=== PATIENT | female | born 1980 | race Caucasian/White ===

== ENCOUNTER 2019-06-03 10:25 | Outpatient (CLI) | payer BC, OTHER | END 2019-06-03 23:59 | LOC: LAB.WCP 10:25 | PROVIDERS: ATTEND Family Medicine | DX: O92.6 Galactorrhea (principal) | CPT/HCPCS: 36415; 84146 ==

== ENCOUNTER 2019-12-24 08:00 | Outpatient (CLI) | payer BC | END 2019-12-24 23:59 | disposition home or self-care (01) | LOC: LAB.R 08:00 | PROVIDERS: ATTEND Family Medicine | DX: J02.9 Acute pharyngitis, unspecified (principal) | CPT/HCPCS: 87070 ==

== ENCOUNTER 2021-06-14 13:54 | Outpatient (CLI) | payer BC ==
--- NOTE | 2021-06-14 16:08 | XRAY Report ---
PROCEDURE: Chest 2 View X-Ray INDICATIONS: ASTHMA EXACERBATION TECHNIQUE: 2 view(s) of the chest. COMPARISON: None. FINDINGS: Surgical changes and devices: None. Lungs and pleura: No pleural effusions or pneumothorax. Lungs are clear. Mediastinum: Mediastinal contours are normal. Heart size is normal. Bones and chest wall: No suspicious bony abnormalities. Soft tissues appear unremarkable. IMPRESSION: No evidence acute pulmonary process. Reviewed by: Sarkis Puente MD on 06/14/2021 4:06 PM PDT Approved by: Sarkis Puente MD on 06/14/2021 4:06 PM PDT Station ID: [id number]
== END 2021-06-14 23:59 | disposition home or self-care (01) ==
LOC: MERGE 13:54 → DI.N 13:54
PROVIDERS: ATTEND Family Medicine
DX: J45.901 Unspecified asthma with (acute) exacerbation (principal)

== ENCOUNTER 2023-06-01 13:09 | Outpatient (CLI) | payer BC ==
--- NOTE | 2023-06-01 22:54 | Ultrasound Report ---
PROCEDURE: Pelvic w/Transvaginal INDICATIONS: EXCESSIVE AND FREQUENT MENSTRUATION WITH REGULAR cycle. TECHNIQUE: Real-time scanning was performed of the pelvic organs, with image documentation. Additional endovagi nal scanning was necessary due to incomplete visualization of the adnexal and endometrial structures by transabdominal scanning. COMPARISON: None. FINDINGS: Uterus: Uterus is anteverted and normal in size at 8.3 x 3 x 4.2 cm. The myometrium is homogeneous. The endometrium measures 3 mm in combined thickness. No abnormal vascularity can be seen along the endometrial stripe. A trace amount of fluid can be seen along the cervical canal. Ovaries: The right ovary measures 1.5 x 1.9 x 1.4 cm, with a calculated ovarian volume of 2 cc. A d ominant follicle can be seen within the right ovary that measures 1 cm, which is considered to be wit hin physiologic limits. The left ovary is only seen transabdominally and measures 2.7 x 1.2 x 2 cm, with a calculated ovarian volume of 3.6 cc. The ovaries have a normal sonographic appearance. Less than 12 follicles can be seen in each ovary. No adnexal masses are seen. No cystic lesions measuring greater than 3 cm. Other: No pathologic free abdominal or pelvic fluid. IMPRESSION: Pelvic ultrasound within normal limits, without a cause of the patient's presenting history identifie d. Reviewed by: Nish Dominguez MD on 06/01/2023 9:53 PM RANDEE Approved by: Nish Dominguez MD on 06/01/2023 9:53 PM RANDEE Station ID: [id number]
== END 2023-06-01 13:10 | disposition home or self-care (01) ==
LOC: DI 13:09
PROVIDERS: ATTEND Nurse Practitioner Family
DX: N92.0 Excessive and frequent menstruation with regular cycle (principal)

== ENCOUNTER 2023-12-24 09:25 | Outpatient (CLI) | payer BC, OTHER | END 2023-12-24 09:26 | disposition home or self-care (01) | LOC: RT 09:25 | PROVIDERS: ATTEND Nurse Practitioner Family | DX: J45.909 Unspecified asthma, uncomplicated (principal) | CPT/HCPCS: 94010; 94727; 94729 ==

== ENCOUNTER 2024-01-15 10:54 | Outpatient (CLI) | payer BC, OTHER ==
--- NOTE | 2024-01-15 11:52 | Sleep Patient Instructions ---
Sleep Center Visit Summary - Patient Visit Information Reason for Visit: Initial consult for evaluation of sleep disordered breathing and other sleep issues. - Patient Instructions Instructions Attached: Sleep Study Home Monitor Additional Instructions: You will be completing a sleep study, either an in-lab polysomnography (PSG) or home sleep study (HST). You will follow-up in the sleep care office after the sleep study is completed to hear the results and talk about therapy, if needed. You will be called by our office staff to schedule this appointment, but you may contact us with any questions. - Clinic Information Contact: [facility] [address] [place] [address] [email or web address] T: [phone]
--- NOTE | 2024-01-15 11:58 | SLEEP CARE CONSULTATION ---
Information from patient questionnaire entered by Joe Tabor. I have reviewed and concur with the information entered by Joe Tabor. This document represents the service I personally performed and the decisions made by me, Yamini Street ARNP. History of Present Illness Service Date and Time: 01/15/2024 1054 Reason for Visit: New patient Chief Complaint: reports: Insomnia, Frequent awakenings at night, Other (When coming out of anesthesia, the nurse expressed concern) Date of Onset: September 2023 Usual bedtime: 11 PM Time it takes to fall asleep: 30 min Snores at night: Yes (occasionally) Observed to quit breathing while asleep: No (Unknown) Sleeps alone due to snoring: No (N/A) Number of times waking at night: 2-3 Reasons for waking at night: reports: Bathroom, Other (Unknown reason). denies: Choking, Snoring, Gasping for air Toss, Turn, or Twitch while sleeping: Yes Recalls having dreams: Yes Usually gets out of bed at: 6-8 AM Feels refreshed in the morning: No Morning headache: No Sleepy or fatigued during the day: Yes Ever fallen asleep while driving: No Takes day naps: No Dreams during day naps: No Prior sleep studies: No Additional HPI information: I had the pleasure of seeing FRANCE MICHAEL today regarding the possibility of her having a sleep disorder. Her current complaints are frequent night awakenings, insomnia and "when coming out of anesthesia, the nurse expressed concern". She had a hysterectomy in September 2023. She says she knows that she does occasionally snore. She is single and sleeps alone. She has not been told that she stops breathing but the nurse at the hospital told her that she has sleep apnea. She says she tosses and turns at night and at least once goes to the bathroom. She has a hard time falling asleep and will take OTC Zzzquil to go to sleep. Once she gets to sleep, she will sleep through night with a few wake-ups. She can go back to sleep without difficulty when awoken at night. - Parasomnia Symptoms Ever been unable to move upon waking from sleep: No Walks in sleep: No Talks in sleep: Yes (occasionally) Ever acted out dreams in sleep: No Ever felt weak in the knees when startled or emotional: No Bothered by creepy, crawly, restless sensations in legs: No Problems with memory or concentration: Yes (memory more than concentration) Subjective Initial [place] Sleepiness Scale score: 3 (in 2023) Past Medical History Past Medical History: reports: Insulin resistance, Anxiety, Asthma, Depression, Other (Allergies, endometriosis, PCOS. 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 Patient is single and lives in [place]. Have you smoked in the past 12 months: No Alcohol use: Yes Alcohol amount and frequency: 1 drink, 1-2 times a month Caffeine use: Yes Caffeine amount and frequency: 1-2 cups every morning Family History Family history of sleep disordered breathing: Yes Family Hx Sleep Apnea: Sibling: Snoring, Sleep apnea - Treated, Grandparent: Snoring Allergies and Home Medications Known drug allergies: No Drug allergies reviewed: Yes Home medication list reviewed: Yes (as listed) Allergy and home medication list: Allergies No Known Drug Allergies Allergy (Verified 01/15/24 11:41) Home Medications FLUoxetine 20 mg ORAL DAILY 01/15/24 [History] Inositol See Rx Instructions .ROUTE .COMPLEX 01/15/24 [History] Magnesium See Rx Instructions .ROUTE .COMPLEX 01/15/24 [History] Montelukast See Rx Instructions .ROUTE .COMPLEX 01/15/24 [History] Probiotic See Rx Instructions .ROUTE .COMPLEX 01/15/24 [History] Vitamin D3 See Rx Instructions .ROUTE .COMPLEX 01/15/24 [History] Wixela 500-50 Inhub See Rx Instructions .ROUTE .COMPLEX 01/15/24 [History] Zyrtec See Rx Instructions .ROUTE .COMPLEX 01/15/24 [History] buPROPion See Rx Instructions .ROUTE .COMPLEX 01/15/24 [History] ZZZQuil, prn sleep Review of Systems Cardiovascular: denies: high blood pressure Respiratory: reports: wheeze, chronic cough Urinary: reports: incontinence (Have a bladder sling) Neurological: denies: headaches Psychiatric: reports: anxiety, depression Ear/Nose/Throat: reports: nasal congestion, sinus problems, hoarseness, wisdom teeth removed. denies: tonsillectomy Musculoskeletal: reports: joint pain (/stiffness) Immunologic: reports: sneezing (/runny nose) Physical Exam Vital signs obtained and entered by: Yamini Caballero NP Blood Pressure: 126/86 Cuff size: long (right arm) Heart Rate: 77 O2 Saturation: 98 Height: 5 ft 7 in Weight: 320 lb Body Mass Index: 50.1 BMI Classification: Morbidly Obese Neck circumference: 18 (inches) Nostrils: patent to airflow Mouth and throat: narrow oropharynx Soft palate: long Hard palate: normal Uvula: normal Uvula visualization: 0% Mallampati Class IV Tongue: enlarged in size with teeth villa on lateral edges Tonsils: 2+ Neck: normal w/o lymphadenopathy or thyromegaly Heart: regular rate and rhythm Lungs: clear bilaterally Impression and Plan 1. Suspected Obstructive Sleep Apnea-Hypopnea Syndrome, as suggested by a history of irregular snoring, frequent awakening during the night, unrefreshed sleep and cognitive impairment. Narrow oropharynx and obesity are common predis posing factors for obstructive sleep apnea-hypopnea syndrome. I recommend proceeding to polysomnography to confirm the diagnosis and to assess severity. If the patient has significant sleep disordered breathing, a manual CPAP titration study will also be performed to find the optimal treatment pressure. I informed the patient of what the sleep studies involve and after some discussion, obtained agreement to proceed. The pathophysiology of obstructive sleep apnea-hypopnea syndrome was discussed with the patient and health risks of cardiovascular and cerebrovascular disease if not treated. Risks of drowsy driving discussed in detail and patient advised to avoid long distance driving and to ticket puller at the first sign of drowsiness. Patient agreed to plan. * Schedule polysomnography * Avoid long distance driving or driving when feeling sleepy. * Avoid alcohol, sedative and muscle relaxant around bedtime. * Attempt to lose weight. * Review instructions provided by trained office staff on how to prepare for the sleep study. * Return for follow-up after sleep study completed. Counseling Topics: Weight loss health impact Plan: HST and followup Visit Type: In Office Time Spent with Patient (minutes): 35 Provider Statement: I spent 100% of the Face to Face Visit with the patient with greater than 50% spent counseling the patient and coordination of care.
[2024-01-15 12:15] VITALS: BP 126/86; O2SAT 98
== END 2024-01-15 10:55 | disposition home or self-care (01) ==
LOC: SC 10:54
PROVIDERS: ATTEND Nurse Practitioner Family
DX: R41.89 Other symptoms and signs involving cognitive functions and awareness (principal); R06.83 Snoring; G47.8 Other sleep disorders; E66.01 Morbid (severe) obesity due to excess calories; Z68.43 Body mass index [BMI] 50.0-59.9, adult; G47.00 Insomnia, unspecified
CPT/HCPCS: 99203; 99212

== ENCOUNTER 2024-02-05 13:25 | Outpatient (CLI) | payer OTHER ==
--- NOTE | 2024-02-06 00:42 | XRAY Report ---
PROCEDURE: Chest 2V INDICATIONS: DYSPNEA, UNSPECIFIED TECHNIQUE: 2 views of the chest were obtained. COMPARISON: None. FINDINGS: Surgical changes and devices: None. Lungs and pleura: No pleural effusions or pneumothorax. Lungs are clear. Mediastinum: Mediastinal contours appear normal. Heart size is normal. Bones and chest wall: No suspicious bony lesions. Overlying soft tissues appear unremarkable. IMPRESSION: Normal two-view chest x-ray Reviewed by: Rolando Khan MD on 02/05/2024 11:40 PM RANDEE Approved by: Rolando Khan MD on 02/05/2024 11:40 PM AKANSHUL Station ID: [id number]
== END 2024-02-05 13:26 | disposition home or self-care (01) ==
LOC: DI.N 13:25
PROVIDERS: ATTEND Nurse Practitioner Family
DX: R06.00 Dyspnea, unspecified (principal)

== ENCOUNTER 2024-02-17 12:29 | Outpatient (CLI) | payer OTHER | END 2024-02-17 12:30 | disposition home or self-care (01) | LOC: SC 12:29 | PROVIDERS: ATTEND Nurse Practitioner Family | DX: G47.33 Obstructive sleep apnea (adult) (pediatric) (principal); R09.02 Hypoxemia; E66.01 Morbid (severe) obesity due to excess calories; Z68.43 Body mass index [BMI] 50.0-59.9, adult | CPT/HCPCS: 95806 ==

== ENCOUNTER 2024-03-18 15:19 | Outpatient (CLI) | payer OTHER ==
--- NOTE | 2024-03-18 15:45 | Sleep Patient Instructions ---
Sleep Center Visit Summary - Patient Visit Information Reason for Visit: Sleep study follow-up - Patient Instructions Instructions Attached: Apnea Sleep Mouthpieces Additional Instructions: You have opted for an oral mandibular appliance to control your sleep apnea. A list of certified dentists in the area was provided for you to find a dentist to have your oral appliance made. Once you have the device, please call and make a follow up appointment. We need to see you after you have been using the appliance for a month. We will evaluate your response to therapy and order a follow up sleep study to check efficiency of treatment. Please call office to schedule a follow up appointment in the sleep care office one month after obtaining new device. - Clinic Information Contact: [facility] [address] [place] [address] [email or web address] T: [phone]
--- NOTE | 2024-03-18 15:49 | SLEEP CARE CONSULTATION ---
Information from patient questionnaire entered by Tonya Randolph. I have reviewed and concur with the information entered by Tonya Randolph. This document represents the service I personally performed and the decisions made by , Yamini Street ARNP. History of Present Illness Service Date and Time: 03/18/2024 151 Initial [place] Sleepiness Scale score: 3 (in 2023) Current [place] Sleepiness Scale score: 1 (03/18/24) Additional HPI information: FRANCE MICHAEL returns for follow up and results of the recently performed home sleep study. The sleep study done on 02/17/24 showed mild obstructive sleep apnea with an average AHI of 6.8 and samantha oxygen saturation of 87%. I explained the pathophysiology behind obstructive sleep apnea. We then spent quite a bit of time discussing different treatment options. For mild obstruct charissa sleep apnea, surgery and oral appliance are alternatives to nasal CPAP therapy but in moderate or severe cases, nasal CPAP is the most effective and reliable treatment. Because apnea is primarily in supine position, I advised her to avoid sleeping suping. I reviewed the impact of weight changes on sleep apnea and strongly recommended losing weight. After some discussion, the patient opted to go with the oral appliance to control her sleep apnea. Patient counseled not drink alcohol less than 4 hours before bedtime as it can increase snoring and apnea. Patient was cautioned about risks of drowsy driving until sleepiness symptoms resolve. Patient denies drowsy driving. Sleep Study - Results Type of Sleep Study: Home sleep study (COMPLETED 02/17/24) Prior sleep studies: No Polysomnography/Home Sleep Study results: Physician Impression: The quality of the study is good. The length of the study is adequate (> 240 minutes). Please also see the tabulated and graphic data. 1. Obstructive Sleep Apnea-Hypopnea (ICD-10 G47.33), mild, with an AHI of 6.8/hr and samantha SaO2 of 87%. During the study, the patient had 8 apneas (8 obstructive, 0 central, 0 mixed) and 39 hypopneas. The longest episode lasted 68.0 seconds. The respiratory events occurred more frequently during supine sleep (supine AHI was 13.1 and non-supine, 6.60). 2. Hypoxemia (ICD-10 R09.02), mild, with the lowest oxygen saturation of 87 % and 24.2 minutes with SaO2 under 90%. Baseline oxygen saturation was normal (Average oxygen saturation was 93%). Allergies and Home Medications Known drug allergies: No Drug allergies reviewed: Yes Home medication list reviewed: Yes (no changes) Allergy and home medication list: Allergies No Known Drug Allergies Allergy (Verified 03/16/24 11:03) Review of Systems Review of systems same as previous: Yes (NO CHANGE) Physical Exam Vital signs obtained and entered by: TONYA Burks MA Blood Pressure: 163/95 (LEFT ARM) Cuff size: long Heart Rate: 85 O2 Saturation: 97 Height: 5 ft 7 in Weight: 325 lb 3.2 oz Body Mass Index: 50.9 BMI Classification: Morbidly Obese Impression and Plan 1. Obstructive Sleep Apnea-Hypopnea Syndrome, mild, with lowest oxygen saturation of 87%. Obviously this is the cause of the patients symptoms of unrefreshed sleep, and excessive daytime sleepiness. Positive pressure therapy could benefit insulin resistance, anxiety and depression. As mentioned above, the patient chose an oral appliance to treat their apnea. A follow up will be made to see if appliance has reduced symptoms. If so, another polysomnography will be ordered with use of the oral appliance to check efficacy in reducing apnea. Until patient is able to use the oral appliance, positional therapy is advised to avoid supine sleep with pillow positioning or one of the commercial products because apnea is more severe supine. 2. Hypoxemia, mild, with a samantha oxygen saturation of 87% and 24.2 minutes spent under 90%. The baseline oxygen saturation was normal with an average oxygen saturation of 93%. 3. Obesity, unspecified. Currently patients BMI is 50.9. Obesity increases the risk of apnea, CPAP pressure requirements and overall health risks especially cardiovascular and diabetes. Thus patient is advised to lose weight. * Nasal auto CPAP therapy, pressure at 4-15 cm H2O. * Attempt to lose weight. * Avoid alcohol consumption near bedtime. * Avoid supine sleep until using CPAP. * The patient is again cautioned about driving until sleepiness completely resolves. * Return one month after CPAP obtained. I will assess response to therapy and compliance at that time. Counseling Topics: Sleeping position, Weight loss health impact Prescriptions: Other (Oral appliance) Plan: follow up with oral appliance to check effectiveness and order repeat sleep study Visit Type: In Office Time Spent with Patient (minutes): 20 Provider Statement: I spent 100% of the Face to Face Visit with the patient with greater than 50% spent counseling the patient and coordination of care.
[2024-03-18 15:53] VITALS: BP 163/95; O2SAT 97
== END 2024-03-18 15:20 | disposition home or self-care (01) ==
LOC: SC 15:19
PROVIDERS: ATTEND Nurse Practitioner Family
DX: G47.33 Obstructive sleep apnea (adult) (pediatric) (principal); R09.02 Hypoxemia; E66.9 Obesity, unspecified; Z68.43 Body mass index [BMI] 50.0-59.9, adult
CPT/HCPCS: 99212; 99213

== ENCOUNTER 2024-05-01 12:17 | Outpatient (CLI) | payer OTHER ==
[2024-05-01] MEDS ORDERED: iohexoL-300 100 ML VIAL ONE (12:28)
[2024-05-01] MEDS ORDERED: DIATRIZOATE MEGLU/DIATRIZO SOD 30 ML BOTTLE PO ONE (12:28)
[2024-05-01] MEDS: DIATRIZOATE MEGLU/DIATRIZO SOD 30 ML BOTTLE PO ONE (19:08)
[2024-05-01] MEDS: iohexoL-300 100 ML VIAL IVP ONE (19:09)
--- NOTE | 2024-05-03 11:12 | CT Report ---
PROCEDURE: Abdomen/Pelvis W INDICATIONS: ABD PAIN TECHNIQUE: Helical axial CT of the abdomen and pelvis was obtained after intravenous contrast adminis tration and reformatted in multiple planes. Radiation dose reduction was achieved using automated exp osure control or adjustment of mA and/or kV according to patient size. COMPARISON: None FINDINGS: Lower thorax: The lung bases are clear. Heart size normal. No hiatal hernia. Liver: Hepatic parenchyma is diffusely decreased in attenuation without focal mass lesion. Biliary system: No calcified cholelithiasis or pericholecystic inflammation. No evidence of bile du ct dilatation. Pancreas: Unremarkable without mass or inflammation evident. Spleen: Normal in size and density. Adrenals: Normal morphology and density. Reproductive system: Hysterectomy. Ovoid nodule in the left pelvis probably reflects ovary on image 2/124 Urinary system: Normal renal size and attenuation. No renal calculi, hydronephrosis, or solid mass p resent. Urinary bladder unremarkable. Gastrointestinal system: The bowel appears unremarkable with no evidence of bowel obstruction or inf lammation. The stomach appears unremarkable. Moderate to fecal debris in the colon Peritoneal spaces: No mesenteric or retroperitoneal adenopathy. No free air. No free fluid. Vasculature: The IVC, aorta and iliac vasculature are unremarkable. Abdominal wall: Abdominal wall is intact without evidence of ventral or inguinal hernias. Musculoskeletal: Normal bone mineralization. No acute fractures. Multilevel degenerative disc disea se and arthropathy in the lower lumbar spine. IMPRESSION: No acute CT findings in the abdomen and pelvis. Moderate fecal debris throughout the colon. No obstruction. Reviewed by: Rolando Khan MD on 05/03/2024 10:11 AM RANDEE Approved by: Rolando Khan MD on 05/03/2024 10:11 AM AKANSHUL Station ID: [id number]
== END 2024-05-01 12:18 | disposition home or self-care (01) ==
LOC: DI 12:17
PROVIDERS: ATTEND Nurse Practitioner Family
DX: R10.11 Right upper quadrant pain (principal)
CPT/HCPCS: 74177; Q9963; Q9967

== ENCOUNTER 2024-06-29 17:56 | Outpatient (CLI) | payer OTHER ==
--- NOTE | 2024-06-30 09:29 | XRAY Report ---
PROCEDURE: Chest 2V INDICATIONS: COUGH TECHNIQUE: 2 views of the chest were acquired. COMPARISON: 02/05/2024. FINDINGS: Surgical changes and devices: None. Lungs and pleura: No pleural effusions or pneumothorax. Diffuse interstitial changes not present pre viously. Consider viral pneumonitis versus mild congestive heart failure Mediastinum: Mediastinal contours appear normal. Heart size is normal. Bones and chest wall: No suspicious bony lesions. Overlying soft tissues appear unremarkable. IMPRESSION: Development of bilateral interstitial changes. Consider viral pneumonitis versus mild congestive hear t failure. Recommend clinical correlation. Reviewed by: Sarkis Puente MD on 06/30/2024 9:27 AM PDT Approved by: Sarkis Puente MD on 06/30/2024 9:27 AM PDT Station ID: [id number]
== END 2024-06-29 17:57 | disposition home or self-care (01) ==
LOC: DI 17:56
PROVIDERS: ATTEND Physician Assistant Medical
DX: R91.8 Other nonspecific abnormal finding of lung field (principal)